=== PATIENT | female | born 2000 | race Caucasian/White ===

== ENCOUNTER 2022-03-19 12:40 | Outpatient (CLI) | payer BC ==
[2022-03-19] MEDS ORDERED: Magnevist 469MG/ML 20 ML VIAL ONE (16:07)
== END 2022-03-19 12:41 | disposition home or self-care (01) ==
LOC: TBSIIMAG 12:40
PROVIDERS: ATTEND Internal Medicine
DX: R42 Dizziness and giddiness (principal); R26.81 Unsteadiness on feet; H90.5 Unspecified sensorineural hearing loss; G93.9 Disorder of brain, unspecified; G91.1 Obstructive hydrocephalus; Q04.3 Other reduction deformities of brain
CPT/HCPCS: 70553; A9579